=== PATIENT | male | born 1970 | race Two or more races ===

== ENCOUNTER 2021-02-01 14:08 | Emergency (ER) | payer BC, OTHER ==
[~2021-02-01] VITALS: Ht 185.4 cm; Wt 108.9 kg
[2021-02-01] MEDS ORDERED: LIDOCAINE W/ EPINEPHRINE 1% 20ML VIAL ID ONE (16:00)
[2021-02-01] MEDS ORDERED: ACETAMINOPHEN 500 MG TAB PO ONE ×2 (16:00→16:30)
[2021-02-01] MEDS ORDERED: TETANUS-DIPTH-ACEL PERTUSSIS 0.5ML SYR Tdap IM ONE (16:15)
[2021-02-01 17:11] VITALS: BP 144/87
== END 2021-02-01 17:11 | disposition home or self-care (01) ==
LOC: EDBD 14:08 → ER 14:08
DX: S01.01XA Laceration without foreign body of scalp, initial encounter (principal); W22.8XXA Striking against or struck by other objects, initial encounter; Y93.89 Activity, other specified; Y92.89 Other specified places as the place of occurrence of the external cause; Y99.8 Other external cause status
CPT/HCPCS: 12002; 70450; 90471; 90715; 96372